=== PATIENT | male | born 1965 | race Caucasian/White ===

== ENCOUNTER 2022-04-04 12:03 | Outpatient (RCR) | payer OTHER, SELFPAY ==
--- NOTE | 2022-04-04 15:24 | OTOPDC ---
Assessment and note entered by Katy Fonseca, OT Evaluation Information Assessment Status Discharge Diagnosis Dyspnea, COPD Reported Pain Level Pain Score 5,10: Self Report Assessment OT Clinical Summary Bg is unable to perform functional mobility safely and independently for household distances due to his current impairments of decreased endurance, increased dyspnsea with functional mobility, in addition to recent L LE trans metatarsal amputation resulting in increased LE pain and LE weakness, fatigue, and decreased standing balance. He is at risk for falls with decreased standing balance contributing to limited ability to perform functional mobility with a walker or cane. Patient demonstrates significant functional mobility limitations that impair their ability to safely participate in mobility-related activities of daily living (MRADL?s). These limitations cannot be sufficiently resolved by the use of an appropriated fitted cane, walker or manual wheelchair. Please see scanned w/c evaluation report for more details. This is to notify provider that Bg Andrade participated in a manual mobility device evaluation today. Recommendations were made specific to patient's needs. Seating Assessment documentation has been completed for detailed information on required equipment. Please note that no further care plan will be developed on this account. Plan of Care OT Services Indicated No
== END 2022-04-05 08:42 | disposition home or self-care (01) ==
LOC: ANHOT 12:03
PROVIDERS: PCP Physician Assistant; Visit Provider Physician Assistant
DX: R06.09 Other forms of dyspnea (principal)
CPT/HCPCS: 97165